=== PATIENT | male | born 1965 | race Caucasian/White ===

== ENCOUNTER 2016-10-10 11:22 | Day surgery (SDC) | payer OTHER ==
[~2016-10-10] VITALS: Ht 180.3 cm; Wt 80.0 kg
[~2016-10-10 11:22] MED LIST: ARGI500C9 PO; ASCO100089 PO; ASPI-973 PO; CHOL10008 PO; KETO DHEA PO; OMEG1CAP56 PO; OMEGA COMPLETE PO; Sodium Chloride LOK Flush 10 mL Syringe IV PRN; fentaNYL-PF 50 mCg/mL 2 mL Inj IVPUSH PRN
[2016-10-10 12:08] VITALS: BP 109/68; PULSE 53; RESP 16; O2SAT 99
[2016-10-10] MEDS: 0.9% Sodium Chloride 1,000 ML IV SCH ×2 (12:15→13:34)
[2016-10-10 13:06] VITALS: BP 102/68; PULSE 60; RESP 10; O2SAT 99
[2016-10-10 13:16] VITALS: BP 114/61; PULSE 57; RESP 14; O2SAT 100
--- NOTE | 2016-10-11 05:35 | ENDO ---
[address] [address] ENDOSCOPY PROCEDURE PATIENT: MAURY ZHOU : 1965 MR#: [id number] ADMIT: 10/10/2016 JOB ID: [id number] DATE OF SERVICE: 10/10/2016 PROCEDURE PERFORMED: Colonoscopy. INDICATIONS: Screening. ASA CLASSIFICATION: The patient's ASA classification is I. MALLAMPATI SCORE: Mallampati score was 1. MEDICATIONS: 1. Versed 4 mg. 2. Fentanyl 150 mcg. INSTRUMENT USED: PCF-H180AL. PREPARATION QUALITY: Good. PROCEDURE DETAILS: After informed consent was obtained, the patient was brought into the GI suite, where he was placed on oxygen by nasal cannula and monitored with continuous pulse oximeter, telemetry, and blood pressure monitoring. A time-out was performed. Then, he was placed in the left lateral decubitus position and medications were administered for sedation. A digital rectal exam was performed which was unremarkable. The colonoscope was then inserted into the rectum and advanced under direct visualization to the cecum, which was identified by the presence of the ileocecal valve and appendiceal orifice. Once the cecum was reached, the colonoscope was withdrawn back into the rectum, as the mucosa and lumen were examined. In the rectum, retroflexion was performed. Following retroflexion, remaining air in the rectum was suctioned, and procedure was completed. FINDINGS: In the ascending colon, there was an approximately 4 mm sessile polyp that was removed with a cold snare. IMPRESSION: Ascending colon polyp. RECOMMENDATIONS: Repeat colonoscopy pending polyp pathology results. COMPLICATIONS: None. ESTIMATED BLOOD LOSS: Less than 5 mL.
--- NOTE | 2016-10-13 11:40 | PATH ---
SURGICAL PATHOLOGY Attending Physician:Andrew Maza CASE STATUS: Signed Out PATIENT NAME: MAURY ZHOU PID: [id number] : 1965 DATE COLLECTED:10/10/2016 20:30 SPECIMEN: Colon, Biopsy CLINICAL HISTORY: 1). ASCENDING POLYP FINAL DIAGNOSIS: 1.ASCENDING COLON POLYP: POLYPOID-SHAPED FRAGMENT OF COLON MUCOSA ASSOCIATED WITH PROMINENT MUCOSAL LYMPHOID AGGREGATE. Negative for dysplasia and malignancy. ICD10 code K63.5 GROSS DESCRIPTION: The specimen is received in one formalin filled container labeled with the patient's name, sublabeled "ascending polyp" and consists of a 0.1 x 0.1 x 0.1 CM portion of tissue which is entirely submitted in one cassette. 10/10/2016 DAC MICRO DESCRIPTION: See diagnosis. ICD-9 CODES: CPT CODES: 1: 20975 Electronically Signed Out Zach Fox MD [facility] [address], [place] [address] Technical component performed at [facility], [facility] [address], [address]
== END 2016-10-10 23:59 | disposition home or self-care (01) ==
LOC: END 11:22
PROVIDERS: ATTEND Internal Medicine Gastroenterology
DX: Z12.11 Encounter for screening for malignant neoplasm of colon (principal); K63.5 Polyp of colon; Z85.89 Personal history of malignant neoplasm of other organs and systems
CPT/HCPCS: 45385; G0500; J2250; J3010; J7030